=== PATIENT | female | born 1940 | race Caucasian/White ===

== ENCOUNTER 2020-07-22 12:31 | Emergency (ER) | payer MEDICARE ==
[2020-07-22 13:04] LABS: #Basophils 0.1 thou/uL (0.0-0.2); #Eosinphils 0.1 thou/uL (0.0-0.7); #Lymphocytes 2.4 thou/uL (1.20-3.40); #Monocytes 0.7 thou/uL (0.11-0.59); #Neutrophils 7.6 thou/uL (1.40-6.50); %Basophils 0.5 % (0.0-1.0); %Eosinophils 1.3 % (0.0-10.0); %Monocytes 6.3 % (0.0-10.0); %Neutrophils 69.9 % (42.0-75.0); Hemoglobin 13.8 g/dL (12.0-16.0); Mean Corpuscular HGB CONC 34.2 g/dL (32.0-36.0); Mean Corpuscular Hemoglobin 33.1 pg (27.0-31.0); Mean Corpuscular Volume 96.8 fL (78.0-98.0); Mean Platelet Volume 8.5 fL (7.4-10.4); Platelet Count 155 thou/uL (130-400); RBC Distribution Width 11.5 % (11.5-14.5); Red Blood Cell (RBC) Count 4.18 mill/uL (4.20-5.40); White Blood Cell (WBC) Count 10.9 thou/uL (4.8-10.8)
[2020-07-22 13:11] LABS: INR-International Normal Ratio 1.3; PTT 31.3 sec (22.9-36.1); Prothrombin Time 16.7 sec (12.0-14.7)
--- NOTE | 2020-07-22 13:14 | CT ---
Exam: Head CT without contrast HISTORY: Status post trauma. Patient tripped and fell. Bruising of the right. COMPARISON: none FINDINGS: Hemorrhage: No intraparenchymal hemorrhage or extra-axial hematoma. Brain parenchyma: Cortical layton-white matter differentiation is preserved. No mass effect or midline shift. Basilar cisterns are patent.Small vessel ischemic changes white matter. Ventricular system: Ventricles and sulci are patent and symmetric. Calvarium: Intact. Sinuses and mastoid air cells: Adequate aeration. Additional findings: Right periorbital hematoma. IMPRESSION: 1. No intracranial post traumatic sequelae 2. Right periorbital hematoma.
[2020-07-22 13:29] LABS: ALT (SGPT) 11 U/L (8-55); AST (SGOT) 16 U/L (5-34); Alkaline Phosphatase 57 U/L (40-110); Anion Gap 14 mmol/L (10-20); BUN (Urea Nitrogen) 20 mg/dL (9.8-20.1); Bilirubin, Total 0.6 mg/dL (0.2-1.2); Calc. Creatinine Clearance 0 mL/min (70-130); Calcium 9.8 mg/dL (7.8-10.44); Carbon Dioxide 29 mmol/L (23-31); Chloride 101 mmol/L (98-107); Estimated GFR-MDRD 64; Globulin 2.8 g/dL (2.4-3.5); Glucose 264 mg/dL (83-110); Protein, Total 6.8 g/dL (6.0-8.3); Sodium 140 mmol/L (136-145)
== END 2020-07-22 14:54 | disposition home or self-care (01) ==
LOC: ERS 12:31
DX: S80.02XA Contusion of left knee, initial encounter (principal); S00.11XA Contusion of right eyelid and periocular area, initial encounter; E11.9 Type 2 diabetes mellitus without complications; W19.XXXA Unspecified fall, initial encounter
CPT/HCPCS: 36415; 70450; 80053; 85025; 85610; 85730

== ENCOUNTER 2020-12-04 11:17 | Outpatient (CLI) | payer MEDICARE ==
[2020-12-04 12:23] LABS: #Basophils 0.1 10x3/uL (0.0-0.2); #Eosinphils 0.2 10x3/uL (0.0-0.5); #Monocytes 0.8 10x3/uL (0.0-1.1); #Neutrophils 5.8 10x3/uL (1.5-8.4); %Basophils 0.6 % (0.0-2.0); %Eosinophils 2.1 % (0.0-6.0); %Lymphocytes 29.3 % (18.0-47.0); %Neutrophils 59.5 % (40.0-75.0); Hemoglobin 13.6 g/dL (12.0-15.5); Mean Corpuscular HGB CONC 33.7 g/dL (32.0-36.0); Mean Corpuscular Hemoglobin 31.3 pg (27.0-33.0); Mean Corpuscular Volume 92.9 fl (81.6-98.3); Mean Platelet Volume 10.8 fl (7.4-10.4); Platelet Count 167 10x3/uL (150-450); RBC Distribution Width 12.8 % (11.5-14.5); Red Blood Cell (RBC) Count 4.34 10x6/uL (3.90-5.03); White Blood Cell (WBC) Count 9.7 10x3/uL (3.5-10.5)
[2020-12-04 12:42] LABS: ALT (SGPT) 15 U/L (8-55); AST (SGOT) 16 U/L (5-34); Albumin 4.2 g/dL (3.4-4.8); Alkaline Phosphatase 64 U/L (40-110); Anion Gap 14 mmol/L (10-20); BUN (Urea Nitrogen) 14 mg/dL (9.8-20.1); Bilirubin, Total 0.8 mg/dL (0.2-1.2); Calc. Creatinine Clearance 0 mL/min (70-130); Calcium 9.1 mg/dL (7.8-10.44); Carbon Dioxide 25 mmol/L (23-31); Chloride 103 mmol/L (98-107); Globulin 2.5 g/dL (2.4-3.5); Glucose 266 mg/dL (83-110); Potassium 4.3 mmol/L (3.5-5.1); Protein, Total 6.7 g/dL (5.8-8.1); Sodium 138 mmol/L (136-145)
[2020-12-04 17:53] LABS: SARS-CoV-2 PCR by NAA Not Detected (NotDetected)
== END 2020-12-04 11:18 | disposition home or self-care (01) ==
LOC: LABBT 11:17
PROVIDERS: ATTEND Internal Medicine Cardiovascular Disease
DX: Z01.818 Encounter for other preprocedural examination (principal); Z20.822 Contact with and (suspected) exposure to COVID-19
CPT/HCPCS: 71046; 80053; 85025; U0003; U0005; 87635

== ENCOUNTER 2020-12-09 05:58 | Day surgery (SDC) | payer MEDICARE ==
[2020-12-08 12:11] VITALS: BMI 23.8
[2020-12-09] MEDS ORDERED: Lidocaine 1% (PF) 30 ML VIAL ONE (06:41)
[2020-12-09] MEDS ORDERED: Fentanyl 100 MCG/2 ML VIAL ONE (07:38)
[2020-12-09] MEDS ORDERED: Midazolam HCl 2 mg/2 ml Vial ONE (07:38)
[2020-12-09] MEDS ORDERED: hydrALAZINE 20 MG/ML VIAL ONE (08:22)
[2020-12-09] MEDS ORDERED: Iopamidol 370 76% 100 ML VIAL ONE (12:45)
== END 2020-12-09 12:19 | disposition home or self-care (01) ==
LOC: CCL 05:58
PROVIDERS: ATTEND Internal Medicine Cardiovascular Disease
PROC: 04HL3DZ Insertion of Intraluminal Device into Left Femoral Artery, Percutaneous Approach (ICD-10-PCS; principal; 2020-12-09)
PROC: 04HK3DZ Insertion of Intraluminal Device into Right Femoral Artery, Percutaneous Approach (ICD-10-PCS; 2020-12-09)
DX: I73.9 Peripheral vascular disease, unspecified (principal); I70.92 Chronic total occlusion of artery of the extremities; I10 Essential (primary) hypertension; E11.9 Type 2 diabetes mellitus without complications; E03.9 Hypothyroidism, unspecified; I48.0 Paroxysmal atrial fibrillation; E78.2 Mixed hyperlipidemia; I44.0 Atrioventricular block, first degree; Z86.73 Personal history of transient ischemic attack (TIA), and cerebral infarction without residual deficits; Z79.01 Long term (current) use of anticoagulants; Z79.4 Long term (current) use of insulin; Z79.899 Other long term (current) drug therapy
CPT/HCPCS: 36200; 36246; 75630; 75716; 99152; 99153; J0360; J2001; J2250; J3010; Q9967

== ENCOUNTER 2023-02-02 12:36 | Outpatient (CLI) | payer MEDICARE | END 2023-02-02 12:37 | disposition home or self-care (01) | LOC: RAD 12:36 | PROVIDERS: ATTEND Student in an Organized Health Care Education/Training Program | DX: M25.562 Pain in left knee (principal); M25.551 Pain in right hip; M25.552 Pain in left hip ==